=== PATIENT | male | born 1950 | race American Indian/Alaskan Native ===

== ENCOUNTER 2017-07-11 14:33 | Outpatient (CLI) | payer MEDICARE, OTHER ==
--- NOTE | 2017-07-12 00:36 | XRay Report ---
FINAL REPORT EXAM: XR SPINE LUMBOSACRAL 2-3V HISTORY: BACK PAIN TECHNIQUE: Three views of the lumbar spine were submitted. There are no previous studies available for comparison. FINDINGS: There is a dextroscoliosis of the lumbar spine. There is previous fusion at the L3-4, L4-5 and L5-S1 levels with hardware in place. There is a grade 1 anterolisthesis of L4 over L5. There is multilevel disc degeneration throughout the lumbar spine with endplate spurring. There is no evidence of fracture or hardware complication. IMPRESSION: Dextroscoliosis with multilevel fusion changes as described. No evidence of hardware complication or fracture.
== END 2017-07-11 14:34 | disposition home or self-care (01) ==
LOC: SPVIMAG 14:33
PROVIDERS: ATTEND Internal Medicine
DX: M51.37 Other intervertebral disc degeneration, lumbosacral region (principal); M41.87 Other forms of scoliosis, lumbosacral region; M43.27 Fusion of spine, lumbosacral region; J44.9 Chronic obstructive pulmonary disease, unspecified; Z87.891 Personal history of nicotine dependence
CPT/HCPCS: 72100

== ENCOUNTER 2020-02-06 11:15 | Day surgery (SDC) | payer MEDICARE, OTHER ==
[2020-02-04 12:00] LABS: Hematocrit 47.3 % (35.5-45.6); Mean Corpuscular HGB Conc 34 % (32-34); Mean Corpuscular Volume 87 fl (84-94); Platelet Count 173 K/mm3 (140-440); Red Blood Count 5.42 M/mm3 (3.65-5.03); Red Cell Distribution Width 14.5 % (13.2-15.2)
[2020-02-04 12:17] LABS: Alanine Aminotransferase 15 units/L (7-56); Albumin 4.3 g/dL (3.9-5); BUN/Creatinine Ratio 8; Blood Urea Nitrogen 11 mg/dL (9-20); Calcium 9.3 mg/dL (8.4-10.2); Hemolysis Index 28
--- NOTE | 2020-02-04 13:12 | Anesthesia Consultation ---
Anesthesia Consult and Med Hx Date of service: 02/06/20 - Airway Anesthetic Teeth Evaluation: Dentures (drake upper and lower) ROM Head & Neck: Adequate Mental/Hyoid Distance: Adequate Mallampati Class: Class III Intubation Access Assessment: Possibly Difficult - Pulmonary Exam CTA: Yes - Cardiac Exam Cardiac Exam: No Murmur (irregular rhythm) - Pre-Operative Health Status ASA Pre-Surgery Classification: ASA3 Proposed Anesthetic Plan: General - Pulmonary Hx Smoking: Yes (quit 8 yrs ago) SOB: Yes (chronic; improved with O2) COPD: Yes Home Oxygen Therapy: Yes (3-4L prn w/ exertion) Hx Sleep Apnea: Yes (imtermittently uses CPAP) - Cardiovascular System Hx Hypertension: Yes (w/ occasional hypotension) Hx Coronary Artery Disease: Yes Hx Heart Attack/AMI: No Hx Percutaneous Transluminal Coronary Angioplasty (PTCA): No Hx Cardia Arrhythmia: No Hx Peripheral Vascular Disease: Yes - Central Nervous System CVA: No Hx Back Pain: Yes (WITH LEFT LEG PAIN) - Gastrointestinal Hx Gastroesophageal Reflux Disease: No - Endocrine Hx Renal Disease: Yes (CKD) Hx Liver Disease: No Hx Insulin Dependent Diabetes: No Hx Non-Insulin Dependent Diabetes: No Hx Thyroid Disease: No - Other Systems Hx Obesity: Yes (BMI 37) - Additional Comments Anesthesia Medical History Comments: No hx anesthetic complications. Irregular rhythm noted on asculatation in PAT. Patient denies hx arrythmia and was asymptomatic. EKG obtained showing multiple PVCs. No ST segment or T wave changes suggestive of active ischemia however EKG was significantly different from previous in EMR from 2013. Patient provided with copy of EKG and instructed to follow up with his PCP for further evaluation prior to rescheduling surgical procedure.
[~2020-02-06 11:15] MED LIST: LACTATED RINGERS 1,000 ML IV SCH; SODIUM CHLORIDE 0.9% IRRIG SOLN 2000 ML IR ONE
[2020-02-06] MEDS ORDERED: ceFAZolin/Water 2 GM/20 ML 2 GM/20 ML SYRINGE IV ONE (12:09)
[2020-02-06] MEDS ORDERED: ceFAZolin/Water 2 GM/20 ML 2 GM/20 ML SYRINGE IV NR (13:00)
[2020-02-06] MEDS ORDERED: LIDOCAINE MPF (2%) 20 MG/1 ML VIAL 5 ML ONE (13:41)
[2020-02-06] MEDS ORDERED: propofoL 200 MG/20 ML VIAL IV ONE (13:41)
[2020-02-06] MEDS ORDERED: HYDROmorphone 1 MG/1 ML INJ ONE (13:41)
[2020-02-06] MEDS ORDERED: WATER FOR IRRIG STERILE 2000 ML IR ONE (14:39)
[2020-02-06] MEDS ORDERED: SODIUM CHLORIDE 0.9% IRRIG SOLN 2000 ML IR ONE (14:43)
[2020-02-06] MEDS ORDERED: ONDANSETRON 4 MG/2 ML INJ ONE (14:59)
--- NOTE | 2020-02-06 15:08 | Post Operative Note ---
Date of procedure: 02/06/20 Pre-op diagnosis: bph Post-op diagnosis: same Findings: trilobar Procedure: cysto rezum Anesthesia: DELPHINE Surgeon: JUSTIN DUONG Estimated blood loss: none Pathology: none Condition: stable Disposition: PACU
--- NOTE | 2020-02-06 15:09 | Discharge Summary ---
Short Stay Discharge Plan Activity: other (no straining ) Weight Bearing Status: Full Weight Bearing Diet: low fat, low cholesterol, low salt Special Instructions: other (teach read care ) Durable Medical Equipment Needed Upon Discharge: other (read) Follow up with: DAYSI MCALLISTER JR, MD [Primary Care Provider] - 7 Days JUSTIN DUONG MD [Staff Physician] - 7 Days
[2020-02-06 16:07] VITALS: BP 109/66
--- NOTE | 2020-02-06 16:27 | Anesthesia Day of Surgery ---
Anesthesia Day of Surgery - Day of Surgery Patient Examined: Yes Patient H&P Reviewed: Yes Patient is NPO: Yes
--- NOTE | 2020-02-06 16:27 | Post Anesthesia Evaluation ---
- Post Anesthesia Evaluation Patient Participated: Yes Airway Patent: Yes Stable Respiratory Function: Yes Nausea/Vomiting: No Temp > 96.8F: Yes Pain Manageable: Yes Adequeate Hydration: Yes Anesthesia Complications: No
--- NOTE | 2020-02-06 17:03 | Operative Report ---
PREOPERATIVE DIAGNOSES: Benign prostatic hypertrophy, bladder outlet obstruction. POSTOPERATIVE DIAGNOSES: Benign prostatic hypertrophy, bladder outlet obstruction. PROCEDURE: Cystoscopy, resume therapy. SURGEON: Dr. Owens. ANESTHESIA: General. FINDINGS: This is a gentleman with trilobar hypertrophy, not a very long prostate, but definitely obstructing. He now presents for treatment. DESCRIPTION OF PROCEDURE: The patient was brought to the operating room and placed on the operating table. Following induction of anesthesia, placed in lithotomy position, prepped and draped in usual sterile fashion. Cystourethroscopy showed a ball valve, small middle lobe and lateral lobes. The resume initially was placed and we were able to calibrate it, but it did not function correctly, so we got a new one and we placed one in the mid lobe and one in each lateral lobe. The patient tolerated the procedure well. A 16 coude catheter was placed and it was draining clear. The patient tolerated the procedure well and brought to recovery in stable condition. JOB# [id number] ADDISON/TATE
== END 2020-02-06 16:50 | disposition home or self-care (01) ==
LOC: OR 11:15
PROVIDERS: ATTEND Urology
DX: N40.0 Benign prostatic hyperplasia without lower urinary tract symptoms (principal); Z20.828 Contact with and (suspected) exposure to other viral communicable diseases; N32.0 Bladder-neck obstruction; I12.9 Hypertensive chronic kidney disease with stage 1 through stage 4 chronic kidney disease, or unspecified chronic kidney disease; N18.9 Chronic kidney disease, unspecified; G62.9 Polyneuropathy, unspecified; I25.10 Atherosclerotic heart disease of native coronary artery without angina pectoris; I10 Essential (primary) hypertension; I73.9 Peripheral vascular disease, unspecified; J44.9 Chronic obstructive pulmonary disease, unspecified; G47.30 Sleep apnea, unspecified; E66.9 Obesity, unspecified; M19.90 Unspecified osteoarthritis, unspecified site; F32.9 Major depressive disorder, single episode, unspecified; Z98.890 Other specified postprocedural states; Z87.440 Personal history of urinary (tract) infections; Z79.899 Other long term (current) drug therapy; Z87.891 Personal history of nicotine dependence
CPT/HCPCS: 36415; 53854; 80053; 85027; 93005; A4217; J0690; J1170; J2405; J2704; J7120; U0003